=== PATIENT | male | born 2000 | race Caucasian/White ===

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

== ENCOUNTER → 2023-11-29 10:33 | Outpatient (CLI) | payer OTHER, SELFPAY ==
[2017-12-29 19:11] VITALS: BMI 25.0
== END ==
PROVIDERS: Visit Provider Nurse Practitioner Family
DX: J02.9 Acute pharyngitis, unspecified (principal)
CPT/HCPCS: 87070